=== PATIENT | male | born 1995 | race Caucasian/White ===

== ENCOUNTER 2017-08-19 12:08 | Emergency (ER) | payer BC ==
[~2017-08-19] VITALS: Ht 185.4 cm; Wt 92.5 kg
[~2017-08-19 12:08] MED LIST: DEXM10TA PO; IBUP-1050 PO; MULT-506 PO
[2017-08-19 12:14] VITALS: TEMP 37; Ht 185.4 cm; Wt 92.5 kg
[2017-08-19] MEDS ORDERED: KETOROLAC TROMETHAMINE 30 MG/ML VIAL IV STA (12:32)
[2017-08-19] MEDS ORDERED: SODIUM CHLORIDE 0.9% 500ML 500 ML IV STA (12:32)
[2017-08-19 13:17] LABS: HEMATOCRIT 40.7 % (42-52); MEAN CELL VOLUME 84.1 fL (80-100); MEAN CORPUSCULAR HGB CONC 35.6 g/dl (32-36); MEAN PLATELET VOLUME 10.2 fL (7.4-10.4); PLATELET COUNT 271 K/uL (130-400); RED BLOOD COUNT 4.84 M/uL (4.7-6.1); WHITE BLOOD COUNT 11.88 K/uL (4.8-10.8)
--- NOTE | 2017-08-19 13:18 | DIAGNOSTIC IMAGING REPORT ---
RIGHT KNEE 3 VIEWS CLINICAL HISTORY: Right knee pain and erythema COMPARISON: None. DISCUSSION: No fractures or dislocations are visualized. There is no radiographic evidence of a joint effusion. No erosive or destructive changes are visualized. IMPRESSION: No bony abnormalities identified. Electronically signed by: Chris Flynn M.D. 08/19/2017 1:16 PM Dictated Date/Time: 08/19/2017 1:16 PM
--- NOTE | 2017-08-19 13:21 | DIAGNOSTIC IMAGING REPORT ---
LEFT KNEE 3 VIEWS CLINICAL HISTORY: Left knee pain. Erythema. COMPARISON: None FINDINGS: Alignment of left knee is anatomic. No acute fracture or joint effusion. No osseous lesion is identified. Joint spaces are preserved. IMPRESSION: Normal left knee radiographs. Electronically signed by: Jean-Paul Cruz M.D. 08/19/2017 1:19 PM Dictated Date/Time: 08/19/2017 1:19 PM
[2017-08-19] MEDS ORDERED: AMPH10CA3 PO (13:28)
[2017-08-19 13:38] LABS: BLOOD UREA NITROGEN 13 mg/dl (7-18); BUN/CREATININE RATIO 15.3 (10-20); C-REACTIVE PROTEIN < 0.29 mg/dl (0-0.29); CALCIUM 8.9 mg/dl (8.5-10.1); CARBON DIOXIDE 25 mmol/L (21-32); CHLORIDE 108 mmol/L (98-107); CREATININE 0.88 mg/dl (0.60-1.40); GLUCOSE 86 mg/dl (70-99); POTASSIUM 3.8 mmol/L (3.5-5.1); SODIUM 141 mmol/L (136-145); URIC ACID 5.8 mg/dl (2.6-7.2)
[2017-08-19 13:57] LABS: COMPLETE YES; HYPERSEGMENTED POLYS 1+; LYMPHOCYTE % 34.5 %; MYELOCYTE % 1.7 %; NEUTROPHILS % 42.3 %; VARIANT LYM ABS # 1.53 K/uL; VARIANT LYMPHOCYTE % 12.9 %
[2017-08-19 14:14] LABS: LYME DISEASE AB IGG NEG (NEG); LYME DISEASE AB IGM NEG (NEG)
--- NOTE | 2017-08-19 14:48 | EMERGENCY ROOM VISIT NOTE ---
ED Visit Note First contact with patient: 12:20 22-year-old male with bilateral knee pain and a recent upper respiratory infection was fully evaluated by Jean-Paul Chase PA-C. Please see his note. I also independently evaluated the patient. 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 The patient will require close follow-up at [facility] or by returning here.
[2017-08-19 14:50] VITALS: BP 140/76; PULSE 67; O2SAT 96
[2017-08-19] MEDS ORDERED: TRAM-10 PO (15:02)
--- NOTE | 2017-08-19 15:15 | EMERGENCY ROOM VISIT NOTE ---
History First contact with patient: 12:20 Chief Complaint: KNEEPAIN Stated Complaint: SEVERE ACUTE PAIN AND SWELLING TO BOTH KNEES History of Present Illness The patient is a 22 year old male who presents to the Emergency Room with complaints of severe bilateral knee pain, swelling and redness that developed this morning upon awakening. The patient denies any symptoms last night. The patient denies any recent trauma to his knees. The patient reports that he had an upper respiratory infection that started 1.5 weeks ago. Four days after symptom onset, he was seen at [facility] and was prescribed a Z-Sukhdev and prednisone. He completed his antibiotics 2 days ago. The patient denies any other rash, redness or pain on his body. He denies any urethral drainage, dysuria, chest pain, worsening cough or sinus congestion. He reports that his cough is still present but improving. He currently rates his discomfort a 7 out of 10. The patient reports that he lives in an area at home with a lot of ticks. He did remove some ticks from his dog over the summer , but does not recall any personal tick bites. Review of Systems HEENT: Denies dizziness, visual problems, hearing loss, tinnitus. Denies difficulty swallowing or oral lesions. PULMONARY: Denies worsening cough, shortness of breath, sputum production or hemoptysis. CARDIOVASCULAR: Denies chest pain, palpitations, dyspnea on exertion, orthopnea or peripheral edema. GASTROINTESTINAL: Denies diarrhea, constipation, nausea, vomiting, or abdominal pain. GENITOURINARY: Denies dysuria, frequency, urgency or nocturia. NEUROLOGIC: Denies history of epilepsy, CVA, TIA or chronic headaches. MUSCULOSKELETAL: Denies history of joint tenderness/swelling. SKIN: Denies rashes or lesions. PSYCHIATRIC: Denies history of depression or mental illness. ENDOCRINE: Denies history of diabetes or thyroid disorders. Past Medical/Surgical History Medical Problems: (1) Infectious Mononucleosis, Unspecified Without Complication (2) Splenomegaly, Not Elsewhere Classified Surgical Problems: (1) No history of previous surgery Family History Unremarkable Social History Smoking Status: Never Smoker Alcohol Use: occasionally Drug Use: none Marital Status: single Housing Status: lives with roommate Occupation Status: [employer] student Current/Historical Medications Scheduled Amphetamine-Dextroamphetamine 10MG (Adderall Xr 10MG), 10 MG PO DAILY Scheduled PRN Tramadol (Ultram), 1 TAB PO Q4H PRN for Pain Physical Exam Vital Signs Date Time Temp Pulse Resp B/P (MAP) Pulse Ox O2 Delivery O2 Flow Rate FiO2 08/19/17 14:50 67 18 140/76 96 Room Air 08/19/17 12:14 37.0 97 18 139/88 95 Room Air Pain Rating (0-10): 7.0 Physical Exam CONSTITUTIONAL: Healthy and well nourished. Alert and oriented X 3 with positive affect. She does not appear in any acute distress. HEENT: Normocephalic, atraumatic. Pupils equal, round and reactive. Ears and nares are clear. No scleral icterus or conjunctival injection. NECK: Full active range of motion without discomfort. No JVD or carotid bruits. OROPHARYNX: No posterior pharyngeal erythema, tonsillar hypertrophy or exudates. LYMPHATICS: No posterior or anterior cervical chain adenopathy. RESPIRATORY: Clear to auscultation bilaterally with no wheezing, crackles, rhonchi or stridor. CARDIOVASCULAR: Regular rate and rhythm with no murmurs, rubs or gallops. GASTROINTESTINAL: Bowel sounds present in all quadrants. Soft and nontender to palpation. MUSCULOSKELETAL: Examination of bilateral knee shows mild overriding erythema without edema. The knees are not warm to palpation when compared to the surrounding regions. Passive flexion and extension does not cause any significant discomfort. There is no obvious joint effusion bilaterally. Negative logroll bilaterally. Negative straight leg raise bilaterally. Pedal pulses are intact INTEGUMENTARY: No rash or other significant dermatologic conditions noted. HEMATOLOGIC: No ecchymosis or petechiae. NEUROLOGIC: No focal neurologic deficits noted. Medical Decision & Procedures ER Provider Diagnostic Interpretation: My interpretation of bilateral knee x-rays does not show any obvious joint effusion or other distracted lesions. Radiologist reports were also reviewed with concurrence. Laboratory Results 08/19/17 12:42 Red Blood Count 4.84, Mean Corpuscular Volume 84.1, Mean Corpuscular Hemoglobin 30.0, Mean Corpuscular Hemoglobin Concent 35.6, Mean Platelet Volume 10.2 08/19/17 12:42 Test 08/19/17 12:42 08/19/17 12:45 White Blood Count 11.88 K/uL (4.8-10.8) Red Blood Count 4.84 M/uL (4.7-6.1) Hemoglobin 14.5 g/dL (14.0-18.0) Hematocrit 40.7 % (42-52) Mean Corpuscular Volume 84.1 fL (80-100) Mean Corpuscular Hemoglobin 30.0 pg (25-34) Mean Corpuscular Hemoglobin Concent 35.6 g/dl (32-36) Platelet Count 271 K/uL (130-400) Mean Platelet Volume 10.2 fL (7.4-10.4) RDW Standard Deviation 38.2 fL (36.4-46.3) RDW Coefficient of Variation 12.6 % (11.5-14.5) Neutrophils % (Manual) 42.3 % Lymphocytes % (Manual) 34.5 % Variant Lymphocytes % (manual) 12.9 % Monocytes % (Manual) 8.6 % Myelocytes % 1.7 % Neutrophils # (Manual) 5.03 K/uL (1.4-6.5) Total Absolute Neutrophils 5.03 K/uL (1.4-6.5) Lymphocytes # (Manual) 4.10 K/uL (1.2-3.4) Absolute Variant Lymphocytes 1.53 K/uL Total Absolute Lymphocytes 5.63 K/uL (1.2-3.4) Monocytes # (Manual) 1.02 K/uL (0.11-0.59) Myelocytes # 0.20 K/uL (0-0) Hypersegmented Polys 1+ Erythrocyte Sedimentation Rate 2 mm/hr (0-14) Anion Gap 8.0 mmol/L (3-11) Est Creatinine Clear Calc Drug Dose 151.3 ml/min Estimated GFR () 143.3 Estimated GFR (Non- 123.7 BUN/Creatinine Ratio 15.3 (10-20) Uric Acid 5.8 mg/dl (2.6-7.2) Calcium Level 8.9 mg/dl (8.5-10.1) C-Reactive Protein < 0.29 mg/dl (0-0.29) Lyme Disease IgG Antibody NEG (NEG) Lyme Disease IgM Antibody NEG (NEG) Bedside Lactic Acid Venous 2.09 mmol/L (0.90-1.70) The above labs were reviewed. Lyme screen is negative. Bedside lactic acid is 2.09. CRP and sedimentation rate are normal. White count is mild elevated at 11.88. Medications Administered Medications (Trade) Dose Ordered Sig/Nitza Route Start Time Stop Time Status Last Admin Dose Admin Sodium Chloride 500 ml @ 999 mls/hr Q31M STAT IV 08/19/17 12:32 08/19/17 13:02 DC 08/19/17 12:44 999 MLS/HR Ketorolac Tromethamine (Toradol Inj) 30 mg NOW STAT IV 08/19/17 12:32 08/19/17 12:37 DC 08/19/17 12:43 30 MG ED Course Patient history and physical exam were performed. Nurse's notes were reviewed. Vital signs were reviewed and normal. The patient is afebrile and normotensive. O2 saturation is 95% on room air. IV access was established, and labs were drawn, including blood cultures 2 and bedside lactic acid. Lactate is mildly elevated. Other than a mild leukocytosis, remaining labs are otherwise normal at this point. Lyme screen is negative. A cultures are pending. X-rays of bilateral knees were normal. The case was further discussed with Dr. Nance, ED attending physician, who also evaluated the patient. At this point, we suggested close outpatient follow-up with [facility] or [facility] as the patient did not want to follow-up with [facility]. The patient also asked that I speak with his mother who is also a physician child development assistant back home in [place]. I spoke with Tina ([phone]) according the patient's symptoms and workup findings. She also agreed with further outpatient management. The patient was encouraged to alternate ibuprofen and Tylenol for baseline pain relief. He was provided a prescription for Ultram as needed for breakthrough pain. He is welcome to return to the emergency department for any significant worsening pain, swelling or redness of the knees , developing fever or other concerning rash. The patient was happy with plan of care, voiced understanding of all discharge instructions, refused any analgesics while in the emergency department, and rated his discomfort a 4 out of 10 at the conclusion of my exam. Crutches were also dispensed as needed to help with ambulation. Medical Decision Patient presents with acute onset of bilateral knee pain, redness and swelling. His knees are not warm to palpation, and Bia has decent passive range of motion without significant discomfort. I therefore do not suspect any significant intra-articular involvement such as infection, Lyme's arthritis, gout or pseudogout. Physical exam also is not suggestive of cellulitis as he really does not have any increased warmth to palpation. This point, I do not suspect lumbar radiculitis. Lyme screen at this point is negative, and has no significant elevated sedimentation rate or CRP. Because there is no joint effusion on x-ray or physical exam, I do not feel that arthrocentesis is warranted. [place] Drug Monitoring Program Search Results: patient reviewed within database Medication Reconcilliation Current Medication List: was personally reviewed by me Blood Pressure Screening Patient's blood pressure: Normal blood pressure Impression Primary Impression: Acute bilateral knee pain Departure Information Dispostion Home / Self-Care Prescriptions Tramadol (Ultram) 50 Mg Tab 1 TAB PO Q4H Y for Pain, #20 TAB For Initial Treatment Prov: Freddy Chase PA 08/19/17 Referrals Kenneth Real M.D. Forms HOME CARE DOCUMENTATION FORM, IMPORTANT VISIT INFORMATION Patient Instructions [facility] Additional Instructions Suggest follow-up with [facility] (Dr. Real) within the next 2-3 days. Call the office and tell them that you were referred from the emergency department for your condition. Return to the emergency department for any aggressively worsening pain, fever, increasing redness or other symptoms of concern. Ibuprofen 800 mg and/or Tylenol 1000 mg every 8 hours. You may also alternate these medications for more effective pain relief: Ibuprofen --4 HRS--> Tylenol --4 HRS--> ibuprofen --4 HRS--> Tylenol .... Ultram if needed for worse pain. Use crutches as needed to avoid limping.
== END 2017-08-19 15:15 | disposition home or self-care (01) ==
LOC: C.EDB 12:10 → C.EDD 15:15
DX: M25.561 Pain in right knee (principal); M25.562 Pain in left knee; R05 Cough